=== PATIENT | female | born 1990 | race African-American/Black ===

== ENCOUNTER 2018-05-09 12:04 | Day surgery (SDC) | payer OTHER ==
[2018-05-09] MEDS ORDERED: IV RINGERS,LACTATED 1000ML 1,000 ML IV SCH (12:36)
[2018-05-09] MEDS ORDERED: LIDOCAINE 1% PF 2 ML VIAL. ID PRN (12:45)
[2018-05-09] MEDS ORDERED: ONDANSETRON PF 4 MG/2 ML VIAL. IV PRN (12:45)
[2018-05-09] MEDS ORDERED: fentaNYL PF VIAL 100 MCG/2 ML VIAL IV PRN ×2 (12:45)
[2018-05-09] MEDS ORDERED: HYDROmorphone 2 MG/ML VIAL IV PRN (12:45)
[2018-05-09] MEDS ORDERED: MORPHINE SULFATE 2 MG/ML VIAL. IV PRN (12:45)
[2018-05-09] MEDS ORDERED: PROCHLORPERAZINE 10 MG/2 ML VIAL. IV PRN (12:45)
[2018-05-09 12:46] LABS: U PREG PATIENT NEGATIVE (NEG)
[2018-05-09] MEDS ORDERED: BUPIVAC MPF-EPI 0.5%-1:200000 30 ML VIAL. ONE (12:46)
[2018-05-09] MEDS ORDERED: ROCURONIUM 50 MG/5 ML VIAL. ONE (13:34)
[2018-05-09] MEDS ORDERED: SEVOFLURANE 31 TO 60 MINUTES. IH ONE (13:34)
[2018-05-09] MEDS ORDERED: GLYCOPYRROLATE 1 MG/5 ML VIAL. ONE (13:35)
[2018-05-09] MEDS ORDERED: MIDAZOLAM HCL/PF 2 MG/2 ML VIAL. ONE (13:35)
[2018-05-09] MEDS ORDERED: NEOSTIGMINE METHYLSULFATE 5 MG/5 ML SYRINGE. ONE (13:35)
[2018-05-09] MEDS ORDERED: fentaNYL PF VIAL 100 MCG/2 ML VIAL ONE (13:35)
[2018-05-09] MEDS ORDERED: KETOROLAC 30 MG/ML INJ FOR OR. INJ ONE (13:36)
[2018-05-09] MEDS ORDERED: SUCCINYLCHOLINE 200 MG/10 ML VIAL. ONE (13:36)
[2018-05-09] MEDS ORDERED: ONDANSETRON PF 4 MG/2 ML VIAL. ONE (13:36)
[2018-05-09] MEDS ORDERED: DEXAMETHASONE SOD PHOS 20 MG/5 ML VIAL. ONE (13:36)
[2018-05-09] MEDS ORDERED: LIDOCAINE 2% PF Vial for OR 5 ML VIAL. ONE (13:36)
[2018-05-09] MEDS ORDERED: PROPOFOL 20 ML IV ONE (13:36)
--- NOTE | 2018-05-09 15:09 | PDOC ---
BRIEF OPERATIVE NOTE Date: May 09, 2018 Pre-Op Diagnosis Desires permanent sterilization Post-Op Diagnosis Same Procedure Performed Lap BTL with Filshie clips Surgeon Cristian Anesthesia Type: General Blood Loss 20cc Specimens Obtained None Complications None VALERIA FERNANDEZ MD May 09, 2018 15:09
[2018-05-09] MEDS ORDERED: NAPR-514 PO (15:13)
[2018-05-09] MEDS ORDERED: OXYC1TAB15 PO (15:13)
[2018-05-09] MEDS ORDERED: oxyCODONE/APAP 5/325 1 TAB TABLET PO ONE (16:00)
--- NOTE | 2018-05-09 16:11 | OP ---
DATE OF SURGERY: 05/09/2018 PREOPERATIVE DIAGNOSIS: Multiparous, desires permanent sterilization. POSTOPERATIVE DIAGNOSIS: Multiparous, desires permanent sterilization. PROCEDURE: Laparoscopic bilateral tubal ligation with Filshie clips. SURGEON: Kendall Foster M.D. EDITOR S[employer] PHOTOGRAPH: None. ANESTHESIA: General. ESTIMATED BLOOD LOSS: 20 mL. FLUIDS: Crystalloid. SPECIMENS: None. COMPLICATIONS: None. CONDITION: Stable. DESCRIPTION OF PROCEDURE: After risks, benefits, indications, alternatives and expectations discussed in detail with the patient and the patient's mother, the patient brought to the OR theater, placed in dorsal lithotomy position in Ken stirrups. With adequate general anesthesia, the patient was prepped and draped in usual sterile manner and sponge stick was placed in the vaginal vault for uterine manipulation. Attention was then turned to the anterior abdominal wall. Vertical infraumbilical incision made sharply with scalpel through the Visiport. A 5 mm disposable trocar was placed through this port. Pneumoperitoneum was created. The patient was placed in some Trendelenburg. A transverse suprapubic incision was made to receive 8 mm disposable trocar. Through this trocar, the Filshie clip apparatus was placed. First, right tube was identified, followed to its fimbriated end, approximately 1-2 cm from the cornu, a Filshie clip was placed. Good application was noted. Same procedure was carried out on the opposite side. The intra-abdominal pelvic contents were viewed. No gross abnormalities were noted. Procedure was terminated. The Filshie clip apparatus was removed. Video laparoscope was removed. Pneumoperitoneum was allowed to dissipate. Trocar sleeves were removed. Uterine incision was reapproximated with subcuticular stitch of 4-0 Monocryl, infiltrated with 0.5% Marcaine without epinephrine. The sponge stick was removed. Sponge, needle and instrument counts correct x 2. The patient went to postop anesthesia recovery in stable condition. KENDALL FOSTER MD DR: MIRIAM/racquel JOB#: [id number] / [id number]
[2018-05-09 17:05] VITALS: BP 122/73
== END 2018-05-09 18:02 | disposition home or self-care (01) ==
LOC: SURG 12:04
PROVIDERS: ATTEND Specialist
DX: Z30.2 Encounter for sterilization (principal); Z64.1 Problems related to multiparity; Z98.890 Other specified postprocedural states
CPT/HCPCS: 58671; 81025; A4264; A7015; J0330; J1100; J1885; J2001; J2250; J2405; J2704; J2710; J3010; J3490; J7120